=== PATIENT | female | born 1995 | race Caucasian/White ===

== ENCOUNTER 2018-01-15 10:33 | Emergency (ER) | payer OTHER ==
[2018-01-15] MEDS: KETOROLAC 30 MG INJ IV (11:47)
[2018-01-15] MEDS: DIPHENHYDRAMINE 50 MG INJ IV (11:47)
[2018-01-15] MEDS: SOD CHLORIDE 0.9% 1,000 ML IV (11:47)
[2018-01-15] MEDS: METOCLOPRAMIDE 10 MG INJ IV (11:47)
[2018-01-15 12:07] LABS: ADD UMIC NO; UR ASCORBIC ACID NEGATIVE (NEGATIVE); UR BILIRUBIN (Dip) NEGATIVE (NEGATIVE); UR BLOOD (Dip) NEGATIVE (NEGATIVE); UR CLARITY SLIGHTLY CLOUDY (CLEAR); UR COLOR YELLOW (YELLOW); UR GLUCOSE (Dip) NEGATIVE (NEGATIVE); UR KETONES (Dip) NEGATIVE (NEGATIVE); UR LEUKOCYTE ESTERASE (Dip) NEGATIVE Leu/ul (NEGATIVE); UR NITRITE (Dip) NEGATIVE (NEGATIVE); UR RBC 1 /HPF (0-5); UR SPECIFIC GRAVITY (Dip) 1.015 (1.003-1.030); UR SQUAMOUS EPITHELIAL CELL FEW /HPF (FEW); UR TOTAL PROTEIN (Dip) NEGATIVE (NEGATIVE); UR UROBILINOGEN (Dip) NEGATIVE (NEGATIVE); UR WBC 0 /HPF (0-5)
== END 2018-01-15 13:39 | disposition home or self-care (01) ==
LOC: FTE 10:33
DX: R51 Headache (principal); F17.210 Nicotine dependence, cigarettes, uncomplicated
CPT/HCPCS: 81001; 81003; 81025; 96374; 96375; 99284-25

== ENCOUNTER 2018-01-17 10:43 | Emergency (ER) | payer OTHER ==
[2018-01-17] MEDS: METOCLOPRAMIDE 10 MG INJ IV (11:47)
[2018-01-17] MEDS: KETOROLAC 30 MG INJ IV (11:47)
[2018-01-17] MEDS: SOD CHLORIDE 0.9% 1,000 ML IV (11:47)
[2018-01-18 14:12] LABS: URINE BLOOD (Dip) POC Negative (NEGATIVE); URINE GLUCOSE (Dip) POC Negative (NEGATIVE); URINE KETONES (Dip) POC Negative (NEGATIVE); URINE LEUKOCYTE EST (Dip) POC Negative (NEGATIVE); URINE NITRITE (Dip) POC Negative (NEGATIVE); URINE TOTAL PROTEIN POC Negative (NEGATIVE)
== END 2018-01-17 14:02 | disposition home or self-care (01) ==
LOC: FTE 10:43
DX: J32.9 Chronic sinusitis, unspecified (principal); F17.210 Nicotine dependence, cigarettes, uncomplicated
CPT/HCPCS: 70450; 81003; 81025; 96374; 96375; 99285-25

== ENCOUNTER → 2019-01-29 | Emergency (ER) | payer OTHER | END | disposition home or self-care (01) | LOC: FTE 09:49 | DX: H92.01 Otalgia, right ear (principal); F17.210 Nicotine dependence, cigarettes, uncomplicated | CPT/HCPCS: 99283; Z7502 ==

== ENCOUNTER 2019-04-11 07:25 | Emergency (ER) | payer OTHER ==
[2019-04-11] MEDS: LORAZEPAM 1 MG TAB PO (08:05)
== END 2019-04-11 09:09 | disposition home or self-care (01) ==
LOC: FTE 07:25
DX: F41.9 Anxiety disorder, unspecified (principal); Z87.891 Personal history of nicotine dependence
CPT/HCPCS: 71046; 81025; 93005; 99284-25

== ENCOUNTER 2019-04-15 03:07 | Emergency (ER) | payer OTHER | END 2019-04-15 04:58 | disposition home or self-care (01) | LOC: FTE 03:07 | DX: H10.9 Unspecified conjunctivitis (principal); Z32.02 Encounter for pregnancy test, result negative | CPT/HCPCS: 81025; 99283 ==